=== PATIENT | male | born 1960 | race Hispanic/Latino ===

== ENCOUNTER 2023-05-19 17:07 | Emergency (ER) | payer OTHER ==
[~2023-05-19] VITALS: Ht 167.6 cm; Wt 124.7 kg
[2023-05-19] MEDS ORDERED: IPRATROPIUM/ALBUTEROL SULFATE 3 ML SOLUTION IH ONE (17:41)
[2023-05-19 17:50] VITALS: PULSE 102; RESP 24
[2023-05-19] MEDS: IPRATROPIUM/ALBUTEROL SULFATE 3 ML SOLUTION IH PRN ×2 (17:55→19:28)
[2023-05-19 18:48] LABS: SARS-CoV-2, RNA, NAAT NEGATIVE SARS CoV-2 (NEGATIVE)
[2023-05-19 18:52] LABS: INFLUENZA TYPE A Negative For Type A (NEGATIVE); INFLUENZA TYPE B Negative For Type B (NEGATIVE)
[2023-05-19] MEDS ORDERED: PREDNISONE 20 MG TABLET PO ONE (19:00)
[2023-05-19] MEDS ORDERED: ALBUTEROL 0.083% 2.5 MG/3 ML INH IH ONE ×2 (19:00→19:30)
[2023-05-19 19:27] VITALS: PULSE 91; RESP 20; O2SAT 98
[2023-05-19] MEDS ORDERED: ALBU18HF7 IH (21:43)
[2023-05-19] MEDS ORDERED: BUDE10.7 IH (21:43)
[2023-05-19] MEDS ORDERED: PRED20TA3 PO (21:43)
[2023-05-19] MEDS ORDERED: AZIT250T9 PO (21:43)
[2023-05-19 21:54] VITALS: BP 141/93; PULSE 66; RESP 19; O2SAT 100
== END 2023-05-19 21:57 | disposition home or self-care (01) ==
LOC: EDH 17:07
DX: J45.901 Unspecified asthma with (acute) exacerbation (principal); I10 Essential (primary) hypertension; Z20.822 Contact with and (suspected) exposure to COVID-19; Z90.49 Acquired absence of other specified parts of digestive tract; Z98.890 Other specified postprocedural states
CPT/HCPCS: 99285; 71045; 87635; 94760; 87804 ×2; 94640; 94644; C9803